=== PATIENT | male | born 1965 | race Caucasian/White ===

== ENCOUNTER 2017-12-23 08:13 | Outpatient (RCR) | payer OTHER ==
[2017-10-21 11:59] VITALS: BP 136/91
[2017-10-21 12:24] LABS: PLATELET COUNT, AUTOMATED 199 K/uL (150-450)
--- NOTE | 2017-10-21 18:35 | ONCOLOGY FOLLOW UP NOTE ---
EVENT DATE: October 21, 2017 DIAGNOSIS Secondary erythrocytosis. CHIEF COMPLAINT Patient is here today for follow up of his erythrocytosis. HEMATOLOGY HISTORY The patient is a 51-year-old male who developed an allergic reaction to food in [place] and patient was sent to the emergency room. He had a CBC which showed hematocrit more than 60% at that time. His white blood cell count was 13.4, hemoglobin 18.4 and hematocrit 51.9%. This was after phlebotomy. His platelet count was normal at 204,000. The patient has been seen by primary care provider , María Ochoa PA-C, and his erythropoietin level was low at 2. JAK2 mutation for V617F mutation came back negative. The patient is referred for discussion about the management of his erythrocytosis. He smokes about one pack a day for the last thirty years. 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 HISTORY OF PRESENT ILLNESS Patient is here today for follow up of his erythrocytosis. He is doing very well currently and he is to totally asymptomatic. PAST MEDICAL HISTORY Erythrocytosis. PAST SURGICAL HISTORY Herniorrhaphy multiple times. SOCIAL HISTORY The patient is with four children. He works in at [employer]. He has smoked one pack a day for thirty years. He denies any abuse of alcohol or illicit drugs. FAMILY HISTORY Negative for cancer or blood diseases. CURRENT MEDICATIONS None. ALLERGIES FOOD ALLERGIES. FENTANYL WHICH CAUSES HIVES. IODINE, does not know exactly the reaction. REVIEW OF SYSTEMS CONSTITUTIONAL: No appetite or weight change. No fever, chills or sweating. No recent infection. HEENT: Ears: No tinnitus or hearing problem. Nose: No nasal discharge or epistaxis. Throat: No sore throat or mouth ulcers. Eyes: No diplopia or visual changes. RESPIRATORY: No shortness of breath. No cough, expectoration or hemoptysis. CARDIOVASCULAR: No chest pain, orthopnea, or paroxysmal nocturnal dyspnea (PND) . No edema. No palpitations. GASTROINTESTINAL: No nausea or vomiting. No diarrhea or constipation. No change in bowel movements. No heartburn or swallowing difficulties. No abdominal pain. No jaundice. No hematemesis, melena or rectal bleeding. GENITOURINARY: No hematuria or dysuria. MUSCULOSKELETAL: No pain in the muscles, joints or bones. NEUROLOGICAL: No tingling or numbness in the hands or feet. No headaches or convulsions. HEMATOLOGIC: He is weak, tired and fatigued. SKIN: No skin rash or lumps. PSYCHIATRIC: No anxiety or depression. PHYSICAL EXAMINATION GENERAL: Looks stable. Well-developed, well-nourished, and in no acute distress. VITAL SIGNS: Blood pressure 136/91, pulse 94 per minute, respirations 16 per minute, temperature 98.3, pulse ox 94% on room air. HEENT: Head: Atraumatic. No sinus tenderness to palpation. Eyes: No icterus or conjunctivitis. Mouth and throat: No oral thrush or mucositis. NECK: Supple. No cervical or supraclavicular lymphadenopathy. LUNGS: Clear to auscultation and percussion bilaterally. HEART: Regular rate and rhythm. No gallops, murmurs, clicks or rubs. ABDOMEN: Soft and lax. No tenderness. No hepatosplenomegaly. No masses. EXTREMITIES: No cyanosis, clubbing or edema. LYMPHATICS: No peripheral lymphadenopathy. NEUROLOGICAL: Conscious, alert and oriented times three. No focal motor or sensory deficits. PSYCHIATRIC: Mood and affect appear normal. SKIN: No skin rash, bruise or purpuric eruption. DIAGNOSTIC DATA CBC showed white count 9l6, hemoglobin 20.1, hematocrit 58%, platelets 199,000. ASSESSMENT 1. Secondary erythrocytosis given that the patient had negative JAK2 mutation for V617F and Exon 12-14 mutations. Erythropoietin level was a little bit low at 2. His current hematocrit is 58%. I am planning to phlebotomize 500 mL of blood this time, and I will see him again in three months with CBC. I am planning also to check his CBC every month and proceed with phlebotomy if hematocrit is above 55%. Patient is advised again to quit smoking, which he resumed back recently and for this reason his hematocrit is very high today. 2. Tobacco abuse. Patient is advised to quit tobacco. PLAN 1. Phlebotomize 500 mL of blood today. 2. Patient to return in three months with CBC. 3. Continue baby aspirin 81 mg daily. 4. CBC to be checked monthly and phlebotomize if the hematocrit is above 55%. 5. Patient to contact us for any new concerns or complaints. [facility]
[2017-11-18 08:35] VITALS: BP 138/83
[2017-11-18 08:49] LABS: PLATELET COUNT, AUTOMATED 182 K/uL (150-450)
[2017-12-23 08:26] VITALS: BP 146/89
[2017-12-23 08:40] LABS: PLATELET COUNT, AUTOMATED 184 K/uL (150-450)
== END 2018-01-18 ==
LOC: SPU 08:13
PROVIDERS: ATTEND Internal Medicine Hematology
DX: D75.1 Secondary polycythemia (principal); F17.210 Nicotine dependence, cigarettes, uncomplicated; R05 Cough; R53.83 Other fatigue; Z72.0 Tobacco use; R53.1 Weakness
CPT/HCPCS: 36415; 85025; 99195; 99212

== ENCOUNTER 2018-03-24 15:15 | Outpatient (RCR) | payer OTHER ==
[2018-03-24 15:45] VITALS: BP 145/99
[2018-03-24 15:57] LABS: PLATELET COUNT, AUTOMATED 177 K/uL (150-450)
[2018-03-24 16:11] VITALS: BP 145/99
--- NOTE | 2018-03-24 18:31 | [facility] ONCOLOGY NOTE ---
EVENT DATE: March 24, 2018 DIAGNOSIS Secondary erythrocytosis. CHIEF COMPLAINT Patient is here today for followup of his erythrocytosis. HEMATOLOGY HISTORY The patient is a 52-year-old male who developed an allergic reaction to food in [place], and patient was sent to the emergency room. He had a CBC which showed hematocrit more than 60% at that time. His white blood cell count was 13.4, hemoglobin 18.4, and hematocrit 51.9%. This was after phlebotomy. His platelet count was normal at 204,000. The patient has been seen by primary care provider, María Ochoa PA-C, and his erythropoietin level was low at 2. JAK2 mutation for V617F mutation came back negative. The patient is referred for discussion about the management of his erythrocytosis. He smokes about one pack a day for the last 30 years. 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 HISTORY OF PRESENT ILLNESS Patient is here today for followup of his secondary erythrocytosis. He is doing fine currently except he is weak and tired from working hard lately. PAST MEDICAL HISTORY Erythrocytosis. PAST SURGICAL HISTORY Herniorrhaphy multiple times. SOCIAL HISTORY The patient is with four children. He works at [employer]. He has smoked one pack a day for 30 years. He denies any abuse of alcohol or illicit drugs. FAMILY HISTORY Negative for cancer or blood diseases. CURRENT MEDICATIONS None. ALLERGIES FOOD ALLERGIES. FENTANYL WHICH CAUSES HIVES. IODINE, does not know exactly the reaction. REVIEW OF SYSTEMS CONSTITUTIONAL: No appetite or weight change. No fever, chills, or sweating. No recent infection. HEENT: Ears: No tinnitus or hearing problem. Nose: No nasal discharge or epistaxis. Throat: No sore throat or mouth ulcers. Eyes: No diplopia or visual changes. RESPIRATORY: No shortness of breath. No cough, expectoration, or hemoptysis. CARDIOVASCULAR: No chest pain, orthopnea, or paroxysmal nocturnal dyspnea (PND) . No edema. No palpitations. GASTROINTESTINAL: No nausea or vomiting. No diarrhea or constipation. No change in bowel movements. No heartburn or swallowing difficulties. No abdominal pain. No jaundice. No hematemesis, melena, or rectal bleeding. GENITOURINARY: No hematuria or dysuria. MUSCULOSKELETAL: No pain in the muscles, joints, or bones. NEUROLOGICAL: No tingling or numbness in the hands or feet. No headaches or convulsions. HEMATOLOGIC: He is weak, tired, and fatigued from exerting himself lately. SKIN: No skin rash or lumps. PSYCHIATRIC: No anxiety or depression. PHYSICAL EXAMINATION GENERAL: Looks stable. Well developed, well nourished, and in no acute distress. VITAL SIGNS: Blood pressure 145/99, pulse 86 per minute, respirations 16 per minute, temperature 97.8, pulse ox 97% on room air. HEENT: Head: Atraumatic. No sinus tenderness to palpation. Eyes: No icterus or conjunctivitis. Mouth and throat: No oral thrush or mucositis. NECK: Supple. No cervical or supraclavicular lymphadenopathy. LUNGS: Clear to auscultation and percussion bilaterally. HEART: Regular rate and rhythm. No gallops, murmurs, clicks, or rubs. ABDOMEN: Soft and lax. No tenderness. No hepatosplenomegaly. No masses. EXTREMITIES: No cyanosis, clubbing, or edema. LYMPHATICS: No peripheral lymphadenopathy. NEUROLOGICAL: Conscious, alert, and oriented times three. No focal motor or sensory deficits. PSYCHIATRIC: Mood and affect appear normal. SKIN: No skin rash, bruise, or purpuric eruption. DIAGNOSTIC DATA CBC is pending. ASSESSMENT 1. Secondary erythrocytosis given that the patient has negative JAK2 mutation for V617F and exon 12-14 mutations. The erythropoietin level was a little bit low at 2. I planning to wait for the result of his CBC today, and if his hematocrit is above 55%, I am planning to proceed with phlebotomy of 500 mL blood. I am planning to see him again in three months with CBC at that time. I am planning also to check his CBC every month and to proceed with phlebotomy if hematocrit is above 55%. Patient is advised to quit tobacco, and he is trying to decrease his smoking. 2. Tobacco abuse. Patient is encouraged to quit tobacco. PLAN 1. Phlebotomize 500 mL of blood if hematocrit above 55%. 2. Patient to return in three months with CBC. 3. Continue baby aspirin 81 mg daily. 4. CBC to be checked monthly and proceed with phlebotomy if the hematocrit above 55%. 5. Patient to contact us for any new concerns or complaints. [facility]
== END 2018-04-28 10:31 | disposition home or self-care (01) ==
LOC: SPU 15:15
PROVIDERS: ATTEND Internal Medicine Hematology
DX: D75.1 Secondary polycythemia (principal); F17.210 Nicotine dependence, cigarettes, uncomplicated
CPT/HCPCS: 36415; 85025; 99212